=== PATIENT | male | born 1990 | race Caucasian/White ===

== ENCOUNTER 2022-03-27 07:10 | Emergency (ER) | payer BC ==
--- NOTE | 2022-03-27 09:18 | RAD REPORT ---
EXAM DESCRIPTION: RAD - Chest Single View - 03/27/2022 8:26 am CLINICAL HISTORY: DYSPNEA Chest pain. COMPARISON: No comparisons FINDINGS: Portable technique limits examination quality. The lungs are grossly clear. The heart is normal in size. No displaced fractures. IMPRESSION: No acute intrathoracic process suspected.
--- NOTE | 2022-03-27 10:07 | EDPHYS ---
Physician Documentation [facility] Name: Yaron Tariq Age: 31 yrs Sex: Male : 1990 Arrival Date: 03/27/2022 Time: 07:14 Bed 11 Private MD: ED Physician Jaren Peters HPI: 03/27 08:45 This 31 yrs old Male presents to ER via Ambulatory with complaints of Breathing ms3 Difficulty. 08:45 The patient has shortness of breath at rest. Onset: The symptoms/episode began/occurred ms3 acutely, 2 week(s) ago. Duration: The symptoms are continuous. The patient's shortness of breath has no apparent modifying factors. Associated signs and symptoms: The patient has no apparent associated signs or symptoms. Severity of symptoms: At their worst the symptoms were mild in the emergency department the symptoms have resolved. Historical: - Allergies: 07:23 PENICILLINS; jh6 - Home Meds: 10:52 None [Active]; jl7 - PMHx: 10:52 None; jl7 - PSHx: 10:52 None; jl7 - Immunization history:: Client reports having NOT received the Covid vaccine. Flu vaccine is not up to date. Patient has never been vaccinated. - Social history:: Smoking status: Patient reports the use of cigarette tobacco products, smokes one-half pack cigarettes per day. ROS: 08:45 Constitutional: Negative for fever, and chills. Neck: Negative for injury, pain, and ms3 swelling, Cardiovascular: Negative for chest pain, and palpitations. 08:45 MS/Extremity: Negative for injury and deformity, Skin: Negative for injury, rash, and discoloration. 08:45 Respiratory: Positive for shortness of breath. 08:45 All other systems are negative. Exam: 08:45 Constitutional: This is a well developed, well nourished patient who is awake, alert, ms3 and in no acute distress. Head/Face: Normocephalic, atraumatic. ENT: Nares patent. No nasal discharge, no septal abnormalities noted. Tympanic membranes are normal and external auditory canals are clear. Oropharynx with no redness, swelling, or masses, exudates, or evidence of obstruction, uvula midline. Mucous membranes moist. Neck: Trachea midline, no cervical lymphadenopathy. Supple, full range of motion without nuchal rigidity, or vertebral point tenderness. No Meningismus. Chest/axilla: Normal chest wall appearance and motion. Nontender with no deformity. Cardiovascular: Regular rate and rhythm with a normal S1 and S2. No gallops, murmurs, or rubs. Normal PMI, no JVD. No pulse deficits. Respiratory: Lungs have equal breath sounds bilaterally, clear to auscultation and percussion. No rales, rhonchi or wheezes noted. No increased work of breathing, no retractions or nasal flaring. Abdomen/GI: Soft, non-tender, with normal bowel sounds. No distension or tympany. No guarding or rebound. No evidence of tenderness throughout. Skin: Warm, dry with normal turgor. Normal color with no rashes, no lesions, and no evidence of cellulitis. MS/ Extremity: Pulses equal, no cyanosis. Neurovascular intact. Full, normal range of motion. Psych: Awake, alert, with orientation to person, place and time. Behavior, mood, and affect are within normal limits. Vital Signs: 07:17 BP 122 / 73; Pulse 80; Resp 18; Temp 98.3; Pulse Ox 98% ; Weight 104.33 kg; Height 6 jh6 ft. 2 in. (187.96 cm); Pain 0/10; 07:17 Body Mass Index 29.53 (104.33 kg, 187.96 cm) jh6 MDM: 08:04 Patient medically screened. ms3 08:45 Differential diagnosis: Bronchitis pneumonia, reactive airway disease. ms3 10:06 Data reviewed: vital signs, nurses notes, radiologic studies, plain films, and as a ms3 result, I will discharge patient. Counseling: I had a detailed discussion with the patient and/or guardian regarding: the historical points, exam findings, and any diagnostic results supporting the discharge/admit diagnosis, the need for outpatient follow up, to return to the emergency department if symptoms worsen or persist or if there are any questions or concerns that arise at home. 03/27 08:03 Order name: CXR XRAY; Complete Time: 09:48 ms3 Administered Medications: No medications were administered Disposition Summary: 03/27/22 10:06 Discharge Ordered Location: Home ms3 Condition: Stable ms3 Diagnosis - Shortness of breath ms3 Followup: ms3 - With: Agus Dobbs MD - When: 2 - 3 days - Reason: Recheck today's complaints Discharge Instructions: - Discharge Summary Sheet ms3 - Shortness of Breath, Adult ms3 Forms: - Medication Reconciliation Form ms3 - Thank You Letter ms3 - Antibiotic Education ms3 - Prescription Opioid Use ms3 Signatures: Dispatcher [employer] Constantino Harley RN RN jl7 Jaren Peters DO DO ms3 Chandrika Cho RN RN jh6
--- NOTE | 2022-03-27 10:07 | ER ---
Nurse's Notes [facility] Name: Yaron Tariq Age: 31 yrs Sex: Male : 1990 Arrival Date: 03/27/2022 Time: 07:14 Bed 11 Private MD: Diagnosis: Shortness of breath Presentation: 03/27 07:17 Chief complaint: Patient states: Pt reports he was diagnosed with covid 1 month ago. jh6 Reports SOB with activity remains unchanged. Received cough syrup and inhaler 2 weeks ago at "a random doctor's office" with no relief. Reports he saw a different doctor 6 days ago and received rx for antibiotics which he has completed with no relief. Pt denies fever. Coronavirus screen: Vaccine status: Patient reports being unvaccinated. Client denies travel out of the [place] in the last 14 days. difficulty breathing, Client reports previous positive COVID test result. Date of collection: February 25, 2022. Ebola Screen: Patient negative for fever greater than or equal to 101.5 degrees Fahrenheit, and additional compatible Ebola Virus Disease symptoms Patient denies exposure to infectious person. Patient denies travel to an Ebola-affected area in the 21 days before illness onset. Initial Sepsis Screen: Does the patient meet any 2 criteria? No. Patient's initial sepsis screen is negative. Initial Sepsis Screen: Does the patient have a suspected source of infection? No. Patient's initial sepsis screen is negative. Risk Assessment: Do you want to hurt yourself or someone else? Patient reports no desire to harm self or others. 07:17 Method Of Arrival: Ambulatory [facility] 07:17 Acuity: SAMIRA 4 [facility] Triage Assessment: 07:23 General: Appears in no apparent distress. comfortable, Behavior is calm, cooperative, 6 quiet. Pain: Denies pain. Respiratory: Reports shortness of breath on exertion cough that is productive, dry, Onset: The symptoms/episode began/occurred 1 month ago with covid dx, the patient has mild shortness of breath. Historical: - Allergies: 07:23 PENICILLINS; 6 - Home Meds: 10:52 None [Active]; jl7 - PMHx: 10:52 None; jl7 - PSHx: 10:52 None; jl7 - Immunization history:: Client reports having NOT received the Covid vaccine. Flu vaccine is not up to date. Patient has never been vaccinated. - Social history:: Smoking status: Patient reports the use of cigarette tobacco products, smokes one-half pack cigarettes per day. Vital Signs: 07:17 BP 122 / 73; Pulse 80; Resp 18; Temp 98.3; Pulse Ox 98% ; Weight 104.33 kg; Height 6 [facility] ft. 2 in. (187.96 cm); Pain 0/10; 07:17 Body Mass Index 29.53 (104.33 kg, 187.96 cm) [facility] ED Course: 07:14 Patient arrived in ED. mr 07:21 Jaren Peters DO is Attending Physician. ms3 07:23 Triage completed. 6 08:28 CXR XRAY In Process Unspecified. EDMS 09:28 Constantino Zheng, DESTIN is Primary Nurse. jl7 10:05 Agus Dobbs MD is Referral Physician. ms3 10:44 No provider procedures requiring assistance completed. Patient did not have IV access jl7 during this emergency room visit. Administered Medications: No medications were administered Outcome: 10:06 Discharge ordered by . ms3 10:44 Discharged to home ambulatory. jl7 10:44 Condition: stable 10:44 Discharge instructions given to patient, Instructed on discharge instructions, follow up and referral plans. Demonstrated understanding of instructions, follow-up care. 10:44 Patient left the ED. jl7 Signatures: Dispatcher [employer] [facility] [employer] mr Constantino Zheng RN RN jl7 Jaren Peters DO DO ms3 Chandrika Cho RN RN 6
[2022-03-27 10:48] VITALS: BP 122/73; TEMP 98.3; O2SAT 98
--- OUTSIDE RECORDS SUMMARY | 2022-03-28 15:18 | XMS REPORT | Continuity of Care Document ---
:1990 Author Organization [facility] t Address [address] [place] [address] Care Team Providers Name Role Phone Venessa Ramirez Attending Clinician Unavailable SAMUEL HARMON Attending Clinician Unavailable Payers Payer Name Policy Type Policy Number Effective Date Expiration Date S ource Problems This patient has no known problems. Allergies, Adverse Reactions, Alerts Allergy Allergy Status Severity Reaction(s) Onset Inactive Treating Comm ents Source Name Type Date Date Clinician [place] DA Active U 2020-0 [facility] [place] [facility] DA Active U WEAK, VERY 2019-0 [facility] SICK 04-11 [place] [facility] No Known DA Active U 2006-0 [facility] Contrast 1-20 [place] Allergie 00:00: d [facility] No Known DA Active U 2006-0 [facility] Drug 1-20 [place] [facility] No Known DA Active U 2006-0 [facility] Food 1-20 [place] [facility] No Known DA Active U 2006-0 [facility] Other 1-20 [place] [facility] Medications This patient has no known medications. Vital Signs Vital Name Observation Time Observation Value Comments Source HEIGHT 2020-04-13 00:00:00 188 cm WEIGHT 2020-04-13 00:00:00 104.327 kg Procedures This patient has no known procedures. Encounters Start End Encounter Admission Attending Care Care Encounter Source Date/Time Date/Time Type Type Clinicians Facility Department ID 2021-10-03 Outpatient JEANNIE Ramirez [id number] [place] 12:55:15 [place] [id number] [facility] 2020-04-11 Inpatient HCABREANNA REYNAGA [id number] [facility] 11:31:00 [facility] 2020-04-13 2020-04-13 Outpatient [facility] [id number] 00:00:00 00:00:00 [facility] Results Test Description Test Time Test Comments Results Result [facility] e Comments - XR WRIST 3 + V 2020-04-11 FAX: RT 12:09:00 Samule Barr MD R1 Pe Ell: [facility] St: PRE FAX: Mayur Amaro MD [phone] Name: AVI FERNANDO Marlon FSED : 1990 Age/S: 29/M [address] [facility] Unit #: [id number] Loc: [place] [address] Phys: Samuel Barr MD R1 Acct: [id number] Dis Date: Status: PRE ER PHONE #: Exam Date: 04/11/2020 1210 FAX #: Reason: TRAUMA EXAMS: CPT CODE: [id number] XR WRIST 3 + [place] RT [id number] LOCATION: T18 EXAM: RIGHT WRIST 3 VIEWS INDICATION: Right wrist pain, trauma COMPARISON: None available TECHNIQUE: PA, lateral and oblique radiographs of the right wrist FINDINGS: Tiny avulsion fragments in the posterior wrist most consistent with triquetral avulsion's. These tiny fragments measure up to 2 mm. Carpal bones are normal in alignment. Soft tissue swelling throughout the wrist. IMPRESSION: Tiny triquetral avulsion fracture fragments of the posterior wrist. at 1209 Reported and signed by: Rickey Quinn MD CC: Samuel Barr MD; Mayur Martin MD Technologist: PETEY,HAMLET Trnscrd Date/Time/By: 04/11/2020 ([id number]) : By: [email or web address] PAGE 1 Signed Report FAX: Samuel Barr MD R1 Pe Ell: [facility] St: PRE FAX: Mayur Amaro MD [phone] Name: AVI FERNANDO FS : 1990 Age/S: 29/M [address] [facility] Unit #: [id number] Loc: [place] [address] Phys: Samuel Barr MD R1 Acct: [id number] Dis Date: Status: PRE ER PHONE #: Exam Date: 04/11/2020 1210 FAX #: Reason: TRAUMA EXAMS: CPT CODE: [id number] XR WRIST 3 + V RT [id number] <Continued> Orig Print D/T: S: 04/11/2020 ([id number]) PAGE 2 Signed Report
== END 2022-03-27 10:44 | disposition home or self-care (01) ==
LOC: ER 07:10
DX: R06.02 Shortness of breath (principal); F17.210 Nicotine dependence, cigarettes, uncomplicated; Z88.0 Allergy status to penicillin
CPT/HCPCS: 71045